=== PATIENT | male | born 1980 | race Caucasian/White ===

== ENCOUNTER 2018-07-12 19:22 | Emergency (ER) | payer MEDICAID, MEDICARE, OTHER ==
[~2018-07-12] VITALS: Ht 170.2 cm; Wt 63.5 kg
--- NOTE | 2018-07-12 19:40 | NUR ---
Pt brought in by [id number], walking w steady gait + AAOX4 with c/o weakness, sinus congestion, bodyache x 1 day. Respirations even + unlabored. Denies chest pain/shortness of breath. SA02 100% room air.
[2018-07-12] MEDS ORDERED: ACETAMINOPHEN ES 500 MG TABLET PO ONE (19:45)
[2018-07-12] MEDS ORDERED: IBUPROFEN 600 MG TABLET PO ONE (19:45)
[2018-07-12] MEDS ORDERED: IBUPROFEN 600 MG TABLET ONE (20:05)
[2018-07-12] MEDS ORDERED: ACETAMINOPHEN ES 500 MG TABLET ONE (20:05)
--- NOTE | 2018-07-12 20:52 | NUR ---
Patient discharged to home in stable conditon. Written and verbal after care instructions given. Patient verbalizes understanding of instructions. Pt ambulated out of ER in steady gait. All belongings with pt. VSS. Pt states he lives with friend & called friend to pick him up.
[2018-07-12 21:06] VITALS: BP 116/61
== END 2018-07-12 21:07 | disposition home or self-care (01) ==
LOC: ER 19:31
DX: J11.1 Influenza due to unidentified influenza virus with other respiratory manifestations (principal); F17.200 Nicotine dependence, unspecified, uncomplicated; Z88.0 Allergy status to penicillin
CPT/HCPCS: A4663; A9150